=== PATIENT | female | born 1945 | race Asian ===

== ENCOUNTER 2017-08-17 07:10 | Observation (INO) | payer BC ==
[2017-08-17] MEDS ORDERED: MIDAZOLAM 1 MG/ML 2 ML INJ (08:09)
[2017-08-17] MEDS ORDERED: HEPARIN 1000 UNITS/ML 10 ML INJ (08:09)
[2017-08-17] MEDS ORDERED: NITROGLYCERIN (IC) 100 MCG/ML INJ (08:09)
[2017-08-17] MEDS ORDERED: VERAPAMIL 5 MG INJ (08:09)
[2017-08-17] MEDS ORDERED: FENTAnyl 50 MCG/ML VIAL (08:09)
[2017-08-17 08:17] LABS: ADD MAN DIFF? NO
[2017-08-17 08:18] LABS: WHITE BLOOD COUNT 6.4 10^3/ul (4.8-10.8)
[2017-08-17 08:18] LABS: BASOPHILS % 0.5 % (0.0-2.0); EOSINOPHILS % 0.5 % (0.0-7.0); HEMATOCRIT 38.3 % (37.0-47.0); HEMOGLOBIN 12.9 g/dl (12.0-16.0); LYMPHOCYTES # 2.3 10^3/ul (0.8-2.9); LYMPHOCYTES % 35.4 % (15.0-51.0); MEAN CORPUSCULAR HEMOGLOBIN 31.1 pg (29.0-33.0); MEAN CORPUSCULAR HGB CONC 33.7 g/dl (32.0-37.0); MEAN CORPUSCULAR VOLUME 92.3 fl (82.0-101.0); MEAN PLATELET VOLUME 9.4 fl (7.4-10.4); MONOCYTE # 0.4 10^3/ul (0.3-0.9); NEUTROPHIL # 3.6 10^3/ul (1.6-7.5); NEUTROPHILS % 57.3 % (39.0-77.0); PLATELET COUNT 234 10^3/UL (140-415); RED BLOOD COUNT 4.15 10^6/ul (4.20-5.40); RED CELL DISTRIBUTION WIDTH 12.1 % (11.5-14.5)
[2017-08-17] MEDS ORDERED: LIDOCAINE 1% (MDV) 20 ML INJ (08:47)
[2017-08-17] MEDS ORDERED: IODIXANOL LOCM 100 ML BTL ×4 (08:47→10:45)
[2017-08-17 08:54] LABS: ALANINE AMINOTRANSFERASE 27 IU/L (13-69); ALBUMIN 4.8 g/dl (3.3-4.9); ALBUMIN/GLOBULIN RATIO 1.26; ALKALINE PHOSPHATASE 67 IU/L (42-121); ANION GAP 19 (8-16); ASPARTATE AMINO TRANSFERASE 31 IU/L (15-46); BILIRUBIN,INDIRECT 0.8 mg/dl (0-1.1); BILIRUBIN,TOTAL 0.8 mg/dl (0.2-1.3); CARBON DIOXIDE 25 mmol/L (21-31); CHLORIDE 103 mmol/L (97-110); CHOL/HDL RATIO 2.2 RATIO; CHOLESTEROL 112 mg/dl (100-200); GLUCOSE 137 mg/dl (70-220); HDL CHOLESTEROL 49 mg/dl (33-92); LDL CHOLESTEROL,CALCULATED 38 mg/dl; TOTAL PROTEIN 8.6 g/dl (6.1-8.1); TRIGLYCERIDES 124 mg/dl (0-149)
[2017-08-17 08:56] LABS: BLOOD UREA NITROGEN 13 mg/dl (7-20); CALCIUM 9.6 mg/dl (8.4-10.2); CREATININE 0.78 mg/dl (0.44-1.00); POTASSIUM 4.5 mmol/L (3.5-5.1); SODIUM 142 mmol/L (135-144)
[2017-08-17] MEDS ORDERED: FAMOTIDINE 20 MG TAB PO (09:00)
[2017-08-17] MEDS ORDERED: SOD CHLORIDE 0.45% 1,000 ML IV (09:00)
[2017-08-17] MEDS ORDERED: DIPHENHYDRAMINE 50 MG CAP PO (09:00)
[2017-08-17] MEDS ORDERED: DIAZEPAM 5 MG TAB PO (09:00)
[2017-08-17 09:05] LABS: INR 0.93; PROTIME 12.5 Sec (11.9-14.9)
[2017-08-17] MEDS ORDERED: ADENOSINE 30 ML (09:42)
[2017-08-17] MEDS ORDERED: METOPROLOL 5 MG INJ (10:06)
[2017-08-17] MEDS ORDERED: IOHEXOL 350MG/ML 50 ML BTL (10:27)
[2017-08-17] MEDS ORDERED: ASPIRIN 325 MG TAB (10:33)
[2017-08-17] MEDS ORDERED: TICAGRELOR 90 MG TABLET (10:33)
[2017-08-17] MEDS ORDERED: ACETAMINOPHEN 325 MG TAB PO (11:30)
[2017-08-17] MEDS ORDERED: OXYCODONE/ACETAMINOPHEN (5/325) TAB PO (11:30)
[2017-08-17] MEDS ORDERED: ZOLPIDEM 5 MG TAB PO (11:30)
[2017-08-17] MEDS ORDERED: AL HYDROX/MG HYDROX/SIMETH 30 ML CUP PO (11:30)
[2017-08-17] MEDS ORDERED: ONDANSETRON 4 MG INJ IV (11:30)
[2017-08-17] MEDS: SOD CHLORIDE 0.9% 1,000 ML IV (11:37)
[2017-08-17] MEDS ORDERED: GLUCOSE GEL 15 GRAM TUBE PO ×2 (14:00)
[2017-08-17] MEDS ORDERED: DEXTROSE 50% 50 ML SYRINGE IV ×2 (14:00)
[2017-08-17] MEDS ORDERED: GLUCOSE GEL 15 GRAM TUBE BUCCAL (14:00)
[2017-08-17] MEDS ORDERED: GLUCAGON 1 MG INJ IM (14:00)
[2017-08-17] MEDS ORDERED: glipiZIDE 5 MG TAB PO (17:05)
[2017-08-17] MEDS: INSULIN ASPART [NOVOLOG] 3 ML PEN SC ×2 (17:27→20:50)
[2017-08-17] MEDS: metFORMIN 500 MG TAB PO ×2 (17:27→17:35)
[2017-08-17] MEDS: ATORVASTATIN 10 MG TAB PO (20:48)
[2017-08-18] MEDS: ACCU-CHEK XX (02:00)
[2017-08-18 06:21] LABS: ADD MAN DIFF? NO
[2017-08-18 06:26] LABS: WHITE BLOOD COUNT 6.5 10^3/ul (4.8-10.8)
[2017-08-18 06:26] LABS: BASOPHILS % 0.3 % (0.0-2.0); EOSINOPHILS # 0.1 10^3/ul (0.0-0.5); EOSINOPHILS % 0.8 % (0.0-7.0); HEMATOCRIT 33.2 % (37.0-47.0); HEMOGLOBIN 11.4 g/dl (12.0-16.0); LYMPHOCYTES # 1.6 10^3/ul (0.8-2.9); LYMPHOCYTES % 24.3 % (15.0-51.0); MEAN CORPUSCULAR HEMOGLOBIN 31.7 pg (29.0-33.0); MEAN CORPUSCULAR HGB CONC 34.3 g/dl (32.0-37.0); MEAN CORPUSCULAR VOLUME 92.2 fl (82.0-101.0); MEAN PLATELET VOLUME 9.5 fl (7.4-10.4); MONOCYTE # 0.6 10^3/ul (0.3-0.9); MONOCYTES % 8.9 % (0.0-11.0); NEUTROPHIL # 4.2 10^3/ul (1.6-7.5); NEUTROPHILS % 65.2 % (39.0-77.0); PLATELET COUNT 204 10^3/UL (140-415); RED CELL DISTRIBUTION WIDTH 12.1 % (11.5-14.5)
[2017-08-18 06:55] LABS: ANION GAP 13 (8-16); BLOOD UREA NITROGEN 14 mg/dl (7-20); CALCIUM 8.8 mg/dl (8.4-10.2); CARBON DIOXIDE 24 mmol/L (21-31); CHLORIDE 107 mmol/L (97-110); CREATININE 0.78 mg/dl (0.44-1.00); GLUCOSE 124 mg/dl (70-220); POTASSIUM 4.1 mmol/L (3.5-5.1); SODIUM 140 mmol/L (135-144)
[2017-08-18] MEDS: metFORMIN 500 MG TAB PO (07:35)
[2017-08-18] MEDS: INSULIN ASPART [NOVOLOG] 3 ML PEN SC ×2 (07:35→12:58)
[2017-08-18] MEDS: AMLODIPINE 5 MG TAB PO (08:15)
[2017-08-18] MEDS: ASPIRIN (EC) 81 MG TAB PO (08:15)
[2017-08-18] MEDS: TICAGRELOR 90 MG TABLET PO (12:58)
[2017-08-18 14:01] LABS: TROPONIN-I 0.024 ng/ml (0.000-0.120)
== END 2017-08-18 16:07 | disposition home or self-care (01) ==
LOC: SDS 07:10 → REC 11:09 → ICU 11:15
DX: I25.10 Atherosclerotic heart disease of native coronary artery without angina pectoris (principal); I10 Essential (primary) hypertension; E78.00 Pure hypercholesterolemia, unspecified; E11.9 Type 2 diabetes mellitus without complications; I34.0 Nonrheumatic mitral (valve) insufficiency
CPT/HCPCS: 71045; 80048; 80053; 80061; 82962; 84484; 85025; 85610; 85730; 87081; 93005; 93458; 99217